=== PATIENT | female | born 1975 | race African-American/Black ===

== ENCOUNTER 2021-07-17 20:30 | Emergency (ER) | payer BC, SELFPAY ==
[~2021-07-17] VITALS: Ht 165.1 cm; Wt 78.0 kg
[2021-07-18] MEDS ORDERED: ACET-2708 MT (01:29)
[2021-07-18 02:05] VITALS: BP 145/82
== END 2021-07-18 02:07 | disposition home or self-care (01) ==
LOC: ER 21:55
DX: U07.1 COVID-19 (principal); E11.9 Type 2 diabetes mellitus without complications
CPT/HCPCS: 71045; 93005; 99283